=== PATIENT | male | born 1940 | race Caucasian/White ===

== ENCOUNTER 2020-04-22 07:05 | Outpatient (CLI) | payer MEDICARE, OTHER ==
[~2020-04-22] VITALS: Ht 180.3 cm; Wt 104.3 kg
[2020-04-22 07:31] LABS: TOTAL HEMOGLOBIN 14.4 G/dl (14.0-18.0)
[2020-04-22] MEDS ORDERED: albuterol 2.5 MG/3 ML nebule NEB PRN (08:00)
== END 2020-04-22 23:59 | disposition home or self-care (01) ==
LOC: RT 07:05
PROVIDERS: ATTEND Internal Medicine Cardiovascular Disease
DX: J98.8 Other specified respiratory disorders (principal); R94.2 Abnormal results of pulmonary function studies; Z79.899 Other long term (current) drug therapy
CPT/HCPCS: 85018; 94060; 94727; 94729; 94760

== ENCOUNTER 2021-04-28 07:02 | Day surgery (SDC) | payer MEDICARE, OTHER ==
[2021-04-27 15:12] LABS: BASOPHILS % (AUTO) 0.3 % (0-1); EOSINOPHILS # (AUTO) 0.2 X10'3 (0-0.9); EOSINOPHILS % (AUTO) 2.2 % (0-6); HEMATOCRIT 38.1 % (42.0-52.0); HEMOGLOBIN 12.5 g/dl (14.0-17.9); LYMPHOCYTES # (AUTO) 3.1 X10'3 (1.1-4.8); LYMPHOCYTES % (AUTO) 33.6 % (21-51); MEAN CORPUSCULAR HEMOGLOBIN 29.5 PG (27.0-31.0); MEAN CORPUSCULAR HGB CONC 32.9 g/dL (33.0-36.5); MEAN CORPUSCULAR VOLUME 89.7 FL (78-98); MEAN PLATELET VOLUME 9.4 FL (7.4-10.4); MONOCYTES # (AUTO) 0.9 X10'3 (0-0.9); NEUTROPHILS # (AUTO) 4.9 X10'3 (1.8-7.7); NEUTROPHILS % (AUTO) 53.9 % (42-75); PLATELET COUNT 193 X10'3 (140-440); RED BLOOD COUNT 4.24 X10'6 (4.70-6.10); RED CELL DISTRIBUTION WIDTH 16.1 % (11.5-14.5); WHITE BLOOD COUNT 9.1 X10'3 (4.5-11.0)
[2021-04-27 15:25] LABS: PARTIAL THROMBOPLASTIN TIME 26 SECONDS (22-32)
[2021-04-27 15:26] LABS: ALBUMIN 3.6 G/DL (3.4-5.0); ANION GAP 8 (8-16); BLOOD UREA NITROGEN 20 MG/DL (7-18); BUN/CREATININE RATIO 18.9 (5.4-32.0); CALCIUM 8.6 MG/DL (8.5-10.1); CHLORIDE 106 MMOL/L (99-107); CREATININE 1.06 MG/DL (0.60-1.10); GLUCOSE 147 MG/DL (70-104); POTASSIUM 4.2 MMOL/L (3.5-5.1); SODIUM 144 MMOL/L (135-145); TOTAL CARBON DIOXIDE 30.2 MMOL/L (24-32); eGFR 67 ML/MIN
[2021-04-28] VITALS (11 sets, daily range): BP systolic 104–153; BP diastolic 41–92
[~2021-04-28] VITALS: Ht 180.3 cm; Wt 105.1 kg
[2021-04-28] MEDS ORDERED: normal saline 1,000 ML IV SCH (07:25)
[2021-04-28] MEDS ORDERED: diphenhydrAMINE 25mg capsule PO PRN (07:25)
[2021-04-28] MEDS ORDERED: LORazepam 0.5 MG tablet PO PRN (07:25)
[2021-04-28] MEDS ORDERED: APIX5TAB3 PO (07:31)
[2021-04-28] MEDS ORDERED: VALS1TAB76 PO (07:34)
[2021-04-28] MEDS ORDERED: LOP25T PO (07:34)
[2021-04-28] MEDS ORDERED: ROSU20TA2 PO (07:34)
[2021-04-28] MEDS ORDERED: FLO0.4C PO (07:34)
[2021-04-28] MEDS ORDERED: verapamil 2.5 mg/ml inj IV ONE (09:02)
[2021-04-28] MEDS ORDERED: nitroGLYCERIN-Tridil 50MG/D5W 250 ML IV ONE (09:03)
[2021-04-28] MEDS ORDERED: fentaNYL/PF 50MCG/1 ML 2ML syringe ONE (09:03)
[2021-04-28] MEDS ORDERED: heparin 1,000unit/ml 10ml vial 10 ML ONE (09:03)
[2021-04-28] MEDS ORDERED: midazolam 1 mg/ML 2ml injection ONE (09:03)
[2021-04-28] MEDS ORDERED: iohexol 350MG/ML 100ml bottle IV ONE ×2 (09:03→10:20)
[2021-04-28] MEDS ORDERED: LIDOcaine 1% (10mg/ml)w/preservative injection 20ml MDV ONE (09:03)
[2021-04-28] MEDS ORDERED: iohexol 350 MG/ML 50ML vial IV ONE ×3 (09:03→10:45)
[2021-04-28] MEDS ORDERED: heparin 25,000 UNIT/250ml bag 250 ML IV ONE (10:20)
[2021-04-28] MEDS ORDERED: clopidogrel 300mg tablet ONE (11:06)
[2021-04-28] MEDS ORDERED: HYDROcodone/acetaminophen 5mg/325mg tablet PO PRN (11:50)
[2021-04-28] MEDS ORDERED: HYDROcodone/acetaminophen 10/325mg tab PO PRN (11:50)
[2021-04-28 12:18] LABS: ISTAT HGB ART 11.9 g/dl (14.0-18.0); ISTAT Hct ART 35 %PCV (42-52); ISTAT O2 SATURATION ARTERIAL 97 % (95-98); ISTAT SOURCE BLNK
[2021-04-28 12:19] LABS: ISTAT Hct MIX 35 %PCV (42-52); ISTAT O2 SATURATION MIX VENOUS 73 % (60-80); ISTAT SOURCE BLNK
[2021-04-29] MEDS ORDERED: aspirin 81mg, enteric-coated 1 TAB TABLET.DR PO SCH (08:00)
[2021-04-29] MEDS ORDERED: clopidogrel 75mg tablet PO SCH (08:00)
== END 2021-04-28 18:20 | disposition home or self-care (01) ==
LOC: SSTAY O 07:02
PROVIDERS: ATTEND Internal Medicine Cardiovascular Disease
DX: R94.39 Abnormal result of other cardiovascular function study (principal); I25.10 Atherosclerotic heart disease of native coronary artery without angina pectoris; I25.82 Chronic total occlusion of coronary artery; I10 Essential (primary) hypertension; E78.5 Hyperlipidemia, unspecified; I48.0 Paroxysmal atrial fibrillation; Z95.5 Presence of coronary angioplasty implant and graft; Z79.01 Long term (current) use of anticoagulants; Z87.891 Personal history of nicotine dependence; Z79.899 Other long term (current) drug therapy
CPT/HCPCS: 36415; 76937; 80048; 82803; 85014; 85025; 85347; 85610; 85730; 93005; 93460; 99152; 99153; C1725; C1751; C1769; C1874; C1894; C9600; J1644; J2001; J2250; J3010; Q0163; Q9967; A4620; A5120; J3490

== ENCOUNTER 2022-09-06 17:32 | Outpatient (CLI) | payer MEDICARE, OTHER ==
[~2022-09-06 17:32] MED LIST: ASPI-1265 PO; ASPI81TA52 PO; ATOR40TA72; CEFD300C3 PO; CLOP75TA34 PO; DEXA2TAB PO; FINA5TAB11 PO; METO25TA6 PO; VALS1TAB76 PO; WARF-55 PO
[2022-09-06 18:01] LABS: HEMATOCRIT 33.6 % (42.0-52.0); HEMOGLOBIN 10.9 g/dl (14.0-17.9); MEAN CORPUSCULAR HGB CONC 32.3 g/dL (33.0-36.5); MEAN CORPUSCULAR VOLUME 89.7 FL (78-98); MEAN PLATELET VOLUME 9.5 FL (7.4-10.4); PLATELET COUNT 206 X10'3 (140-440); RED BLOOD COUNT 3.74 X10'6 (4.70-6.10); WHITE BLOOD COUNT 12.1 X10'3 (4.5-11.0)
== END 2022-09-06 23:59 | disposition home or self-care (01) ==
LOC: LAB SPEC 17:32
PROVIDERS: ATTEND General Practice
DX: J11.1 Influenza due to unidentified influenza virus with other respiratory manifestations (principal); M17.9 Osteoarthritis of knee, unspecified; R78.81 Bacteremia; B96.0 Mycoplasma pneumoniae [M. pneumoniae] as the cause of diseases classified elsewhere
CPT/HCPCS: 36415; 85027

== ENCOUNTER 2024-01-08 09:40 | Day surgery (SDC) | payer MEDICARE ==
[2024-01-05 10:40] LABS: BASOPHILS # (AUTO) 0.2 X10'3 (0-0.2); BASOPHILS % (AUTO) 2.3 % (0-1); EOSINOPHILS # (AUTO) 0.3 X10'3 (0-0.9); EOSINOPHILS % (AUTO) 3.1 % (0-6); HEMATOCRIT 40.8 % (42.0-52.0); HEMOGLOBIN 13.6 g/dl (14.0-17.9); LYMPHOCYTES # (AUTO) 2.5 X10'3 (1.1-4.8); LYMPHOCYTES % (AUTO) 26.7 % (21-51); MEAN CORPUSCULAR HGB CONC 33.4 g/dL (33.0-36.5); MEAN CORPUSCULAR VOLUME 95.6 FL (78-98); MEAN PLATELET VOLUME 9.2 FL (7.4-10.4); MONOCYTES # (AUTO) 0.6 X10'3 (0-0.9); MONOCYTES % (AUTO) 6.5 % (2-12); NEUTROPHILS # (AUTO) 5.8 X10'3 (1.8-7.7); NEUTROPHILS % (AUTO) 61.4 % (42-75); PLATELET COUNT 152 X10'3 (140-440); RED BLOOD COUNT 4.27 X10'6 (4.70-6.10); WHITE BLOOD COUNT 9.5 X10'3 (4.5-11.0)
[2024-01-05 10:48] LABS: APTT 32 SECONDS (22-32); INR 1.8 INR; PROTHROMBIN TIME 18.1 SECONDS (9.0-12.0)
[2024-01-05 10:53] LABS: ALBUMIN 3.4 G/DL (3.4-5.0); ANION GAP 6 (8-16); BLOOD UREA NITROGEN 17 MG/DL (7-18); BUN/CREATININE RATIO 19.1 (10.0-20.0); CHLORIDE 106 MMOL/L (99-107); CHOL/HDL RATIO 2.4 (0.00-4.99); CHOLESTEROL 121 MG/DL (0-200); CREATININE 0.89 MG/DL (0.60-1.10); GLUCOSE 112 MG/DL (70-104); HDL CHOLESTEROL 51 MG/DL (35-60); LDL CHOLESTEROL 55 MG/DL (50-100); POTASSIUM 4.1 MMOL/L (3.5-5.1); SODIUM 145 MMOL/L (135-145); TOTAL CARBON DIOXIDE 33.4 MMOL/L (24-32); TRIGLYCERIDES 89 MG/DL (20-135); eGFR 81 ML/MIN
[~2024-01-08] VITALS: Ht 180.3 cm; Wt 106.0 kg
[2024-01-08] VITALS (7 sets, daily range): BP systolic 103–135; BP diastolic 55–76; PULSE 59–71; RESP 12–16; TEMP 97.6; O2SAT 94–97
[~2024-01-08 09:40] MED LIST changes: -ATOR40TA72; +ATOR40TA72 PO
[2024-01-08] MEDS ORDERED: FLO0.4C PO (10:43)
[2024-01-08] MEDS ORDERED: TRAZ-251 PO (10:43)
[2024-01-08] MEDS ORDERED: WARF6TAB49 PO (10:43)
[2024-01-08] MEDS ORDERED: ALLO100T PO (10:43)
[2024-01-08] MEDS: LORazepam 0.5 MG tablet PO PRN (11:04)
[2024-01-08] MEDS: diphenhydrAMINE 25mg capsule PO PRN (11:05)
[2024-01-08] MEDS: normal saline 1,000 ML IV SCH (11:06)
[2024-01-08 11:07] LABS: PROTHROMBIN TIME 11.1 SECONDS (9.0-12.0)
[2024-01-08] MEDS ORDERED: verapamil 2.5 mg/ml inj IV ONE (13:51)
[2024-01-08] MEDS ORDERED: LIDOcaine 1% (10mg/ml) 2ml vial ONE (13:51)
[2024-01-08] MEDS ORDERED: fentaNYL/PF 50MCG/1 ML 2ML syringe ONE (13:52)
[2024-01-08] MEDS ORDERED: heparin 1,000unit/ml 10ml vial 10 ML ONE (13:52)
[2024-01-08] MEDS ORDERED: iohexol 350MG/ML 100ml bottle IV ONE ×3 (13:52→14:43)
[2024-01-08] MEDS ORDERED: midazolam 1 mg/ML 2ml injection ONE (13:52)
[2024-01-08] MEDS ORDERED: nitroGLYCERIN 500mcg/5mL D5W 5 ML IV ONE (13:53)
[2024-01-08] MEDS ORDERED: aspirin 325mg tablet ONE (14:47)
[2024-01-08] MEDS ORDERED: clopidogrel 300mg tablet ONE (14:47)
[2024-01-08] MEDS ORDERED: HYDROcodone/acetaminophen 5mg/325mg tablet PO PRN (15:15)
[2024-01-08] MEDS ORDERED: HYDROcodone/acetaminophen 10/325mg tab PO PRN (15:15)
== END 2024-01-08 17:15 | disposition home or self-care (01) ==
LOC: SSTAY O 09:40
PROVIDERS: ATTEND Student in an Organized Health Care Education/Training Program
DX: R94.39 Abnormal result of other cardiovascular function study (principal); I25.10 Atherosclerotic heart disease of native coronary artery without angina pectoris; E78.00 Pure hypercholesterolemia, unspecified; I48.91 Unspecified atrial fibrillation; Z79.01 Long term (current) use of anticoagulants; Z79.899 Other long term (current) drug therapy; Z95.5 Presence of coronary angioplasty implant and graft
CPT/HCPCS: 36415; 80048; 80061; 85025; 85610; 85730; 93005; 93458; 99152; 99153; A6258; C1874; C9600; J1644; J2250; J3010; J3490; J7030; Q0163; Q9967; 96360; A4615; A6402; C1725; C1751; C1769; C1894